=== PATIENT | female | born 1985 | race Two or more races ===

== ENCOUNTER 2022-02-13 14:05 | Outpatient (CLI) | payer BC, OTHER ==
[2022-02-13] MEDS ORDERED: IOHEXOL 350 100 ML INFUS..BTL IV ONE (14:06)
[2022-02-13 14:42] LABS: CREATININE 0.8 mg/dL (0.6-1.3)
== END 2022-02-13 23:59 | disposition home or self-care (01) ==
LOC: LAB 14:05
PROVIDERS: ATTEND Legal Medicine
DX: I10 Essential (primary) hypertension (principal); R06.02 Shortness of breath
CPT/HCPCS: 36415; 71275; 82565; 84520; Q9967